=== PATIENT | female | born 1995 | race Caucasian/White ===

== ENCOUNTER 2017-10-24 16:04 | Emergency (ER) | payer BC ==
[~2017-10-24] VITALS: Ht 170.2 cm; Wt 72.6 kg
[~2017-10-24 16:04] MED LIST: NITR-68 PO; PHEN-640 PO; SULF1TAB35 PO
[2017-10-24] MEDS ORDERED: fentaNYL INJECTION 100 MCG/2 ML AMP IVP ONE (16:45)
[2017-10-24] MEDS ORDERED: NS IV 1000 ML 1,000 ML IV SCH (16:45)
[2017-10-24] MEDS ORDERED: ONDANSETRON 4 MG/2 ML (SDV) Z0FRAN IVP ONE (16:45)
--- NOTE | 2017-10-24 16:47 | ED Abdominal Pain ---
General Stated Complaint: ABD PAIN Source of Information: Patient Exam Limitations: No Limitations History of Present Illness Date Seen by Provider: Oct 24, 2017 Time Seen by Provider: 16:43 Initial Comments Patient is a 21-year-old female who presents to the emergency accompanied by female friend with reports of right upper quadrant abdominal pain for a year to year and a half. She reports that her primary care physician in [facility] has been evaluating her for gallbladder issues. She reports that last week she had an ultrasound of her gallbladder that was normal and she has outpatient orders for a HIDA scan but has not scheduled that yet. She reports that she has been prescribed Ultram for pain relief and is no longer working. She reports the pain has become worse the past 4 days. Reports nausea, denies fevers, vomiting, diarrhea, constipation, urinary tract symptoms. Timing/Duration: 4-5 Days (worsening pain) Severity/Quality: Moderate Location: RUQ Radiation: No Radiation Modifying Factors: Improves With Analgesics Associated Symptoms: No Fever/Chills; Nausea/Vomiting Allergies and Home Medications Allergies Coded Allergies: No Known Drug Allergies (Unverified , 12/12/14) Home Medications Hydrocodone Bit/Acetaminophen 1 Tab Tab, 1 EACH PO Q6H PRN for PAIN Prescribed by: MIKAYLA FAJARDO on 10/24/171742 Ondansetron 4 Mg Tab.rapdis, 4 MG SL Q4H PRN for NAUSEA/VOMITING-1ST LINE Prescribed by: MIKAYLA FAJARDO on 10/24/171745 Patient Home Medication List Home Medication List Reviewed: Yes Review of Systems Constitutional: see HPI; No chills, No fever Gastrointestinal: See HPI, Abdominal Pain, Nausea All Other Systems Reviewed Negative Unless Noted: Yes Past Uolrjko-Vkujvg-Wcpfzf Hx Past Med/Social Hx: Reviewed Nursing Past Med/Soc Hx Patient Social History Recent Foreign Travel: No Contact w/Someone Who Travel: No Seasonal Allergies Seasonal Allergies: No Past Medical History Adenoidectomy, Tonsillectomy Reproductive Disorders: No Sexually Transmitted Disease: No Family Medical History Reviewed Nursing Family Hx No Pertinent Family Hx Physical Exam Vital Signs Vital Signs - First Documented 10/24/17 16:34 Temp 97.8 Pulse 66 Resp 12 B/P (MAP) 137/83 (101) Pulse Ox 99 O2 Delivery Room Air Capillary Refill : Height/Weight/BMI Height: 5'7" Weight: 150lbs. oz. 68.702070km; 23.49 BMI Method:Stated General Appearance: WD/WN, no apparent distress Respiratory: chest non-tender, lungs clear, normal breath sounds, no respiratory distress, no accessory muscle use Cardiovascular: regular rate, rhythm, no edema, no gallop, no JVD, no murmur Gastrointestinal: normal bowel sounds, soft, no organomegaly, no pulsatile mass , tenderness (right upper quadrant tenderness to light palpation.) Neurologic/Psychiatric: alert, normal mood/affect, oriented x 3 Skin: normal color, warm/dry Progress/Results/Core Measures Results/Orders Lab Results Laboratory Tests Test 10/24/17 16:45 10/24/17 16:48 Range/Units White Blood Count 7.9 4.3-11.0 10^3/uL Red Blood Count 4.76 4.35-5.85 10^6/uL Hemoglobin 13.5 11.5-16.0 G/DL Hematocrit 41 35-52 % Mean Corpuscular Volume 87 80-99 FL Mean Corpuscular Hemoglobin 28 25-34 PG Mean Corpuscular Hemoglobin Concent 33 32-36 G/DL Red Cell Distribution Width 13.2 10.0-14.5 % Platelet Count 286 130-400 10^3/uL Mean Platelet Volume 9.7 7.4-10.4 FL Neutrophils (%) (Auto) 57 42-75 % Lymphocytes (%) (Auto) 31 12-44 % Monocytes (%) (Auto) 9 0-12 % Eosinophils (%) (Auto) 3 0-10 % Basophils (%) (Auto) 0 0-10 % Neutrophils # (Auto) 4.5 1.8-7.8 X 10^3 Lymphocytes # (Auto) 2.5 1.0-4.0 X 10^3 Monocytes # (Auto) 0.7 0.0-1.0 X 10^3 Eosinophils # (Auto) 0.2 0.0-0.3 10^3/uL Basophils # (Auto) 0.0 0.0-0.1 10^3/uL Sodium Level 137 135-145 MMOL/L Potassium Level 3.7 3.6-5.0 MMOL/L Chloride Level 105 98-107 MMOL/L Carbon Dioxide Level 23 21-32 MMOL/L Anion Gap 9 5-14 MMOL/L Blood Urea Nitrogen 10 7-18 MG/DL Creatinine 0.77 0.60-1.30 MG/DL Estimat Glomerular Filtration Rate > 60 BUN/Creatinine Ratio 13 Glucose Level 67 L 70-105 MG/DL Calcium Level 9.3 8.5-10.1 MG/DL Total Bilirubin 0.2 0.1-1.0 MG/DL Aspartate Amino Transf (AST/SGOT) 18 5-34 U/L Alanine Aminotransferase (ALT/SGPT) 20 0-55 U/L Alkaline Phosphatase 74 40-136 U/L Total Protein 7.5 6.4-8.2 GM/DL Albumin 4.2 3.2-4.5 GM/DL Amylase Level 55 25-125 U/L Lipase 18 8-78 U/L Serum Test, Qualitative NEGATIVE NEGATIVE Urine Color YELLOW Urine Clarity CLEAR Urine pH 5 5-9 Urine Specific [place] 1.025 H 1.016-1.022 Urine Protein NEGATIVE NEGATIVE Urine Glucose (UA) NEGATIVE NEGATIVE Urine Ketones NEGATIVE NEGATIVE Urine Nitrite NEGATIVE NEGATIVE Urine Bilirubin NEGATIVE NEGATIVE Urine Urobilinogen NORMAL NORMAL MG/DL Urine Leukocyte Esterase NEGATIVE NEGATIVE Urine RBC (Auto) 1+ H NEGATIVE Urine RBC NONE /HPF Urine WBC 2-5 /HPF Urine Squamous Epithelial Cells 5-10 /HPF Urine Crystals NONE /LPF Urine Bacteria TRACE /HPF Urine Casts NONE /LPF Urine Mucus NEGATIVE /LPF Urine Culture Indicated NO My Orders Orders - MIKAYLA FAJARDO Comprehensive Metabolic Panel (10/24/17 16:40) Lipase (10/24/17 16:40) Amylase (10/24/17 16:40) Ua Culture If Indicated (10/24/17 16:40) Hcg,Qualitative Serum (10/24/17 16:40) Saline Lock/Iv-Start (10/24/17 16:40) Cbc With Automated Diff (10/24/17 16:40) Ns Iv 1000 Ml (Sodium Chloride 0.9%) (10/24/17 16:45) Ondansetron Injection (Zofran Injectio (10/24/17 16:45) Fentanyl Injection (Sublimaze Injection (10/24/17 16:45) Ketorolac Injection (Toradol Injection) (10/24/17 17:30) Medications Given in ED Vital Signs/I&O 10/24/17 10/24/17 16:34 18:00 Temp 97.8 97.9 Pulse 66 67 Resp 12 12 B/P (MAP) 137/83 (101) 120/63 Pulse Ox 99 100 O2 Delivery Room Air Room Air Progress Progress Note : Progress Note I have seen and evaluated the patient. Given the patients normal labs and improving pain she agrees with plans of discharge and following up with the outpatient hida scan. Return precautions were given. Additional pain med script given along with zofran. Departure Impression Primary Impression: Abdominal pain Additional Impression: Nausea alone Disposition: 01 HOME, SELF-CARE Condition: Stable/Unchanged Departure-Patient Inst. Referrals: [facility] (PCP/Family) Primary Care Physician Patient Instructions: Acute Abdomen (Belly Pain), Adult (DC), Nausea and Vomiting, Adult Add. Discharge Instructions: Take medication as directed. [facility], scheduled your HIDA scan as previously directed. Return back to the emergency room for any worsening pain, nausea, vomiting, or any other concerns as needed. Scripts Ondansetron (Zofran Odt) 4 Mg Tab.rapdis 4 MG SL Q4H PRN for NAUSEA/VOMITING-1ST LINE, #14 TAB Prov: MIKAYLA FAJARDO 10/24/17 Hydrocodone Bit/Acetaminophen (Hydrocodone/Acetaminophen 5/325mg Tablet) 1 Tab Tab 1 EACH PO Q6H PRN for PAIN, #14 TAB Prov: MIKAYLA FAJARDO 10/24/17 MIKAYLA FAJARDO Oct 24, 2017 16:47
[2017-10-24 16:53] LABS: BASOPHILS % (AUTO) 0 % (0-10); EOSINOPHILS # (AUTO) 0.2 10^3/uL (0.0-0.3); EOSINOPHILS % (AUTO) 3 % (0-10); HEMATOCRIT 41 % (35-52); HEMOGLOBIN 13.5 G/DL (11.5-16.0); LYMPHOCYTES # (AUTO) 2.5 X 10^3 (1.0-4.0); LYMPHOCYTES % (AUTO) 31 % (12-44); MEAN CORPUSCULAR HEMOGLOBIN 28 PG (25-34); MEAN CORPUSCULAR HGB CONC 33 G/DL (32-36); MEAN CORPUSCULAR VOLUME 87 FL (80-99); MEAN PLATELET VOLUME 9.7 FL (7.4-10.4); MONOCYTES # (AUTO) 0.7 X 10^3 (0.0-1.0); MONOCYTES % (AUTO) 9 % (0-12); NEUTROPHILS # (AUTO) 4.5 X 10^3 (1.8-7.8); NEUTROPHILS % (AUTO) 57 % (42-75); PLATELET COUNT 286 10^3/uL (130-400); RED BLOOD COUNT 4.76 10^6/uL (4.35-5.85); RED CELL DISTRIBUTION WIDTH 13.2 % (10.0-14.5); WHITE BLOOD COUNT 7.9 10^3/uL (4.3-11.0)
[2017-10-24 17:21] LABS: BILIRUBIN,URINE NEGATIVE (NEGATIVE); CLARITY,URINE CLEAR; COLOR,URINE YELLOW; GLUCOSE, URINE (UA) NEGATIVE (NEGATIVE); KETONES,URINE NEGATIVE (NEGATIVE); LEUKOCYTE ESTERASE ,URINE NEGATIVE (NEGATIVE); NITRITE,URINE NEGATIVE (NEGATIVE); PH,URINE 5 (5-9); PROTEIN,URINE NEGATIVE (NEGATIVE); UROBILINOGEN,URINE NORMAL (NORMAL)
[2017-10-24 17:22] LABS: ALANINE AMINOTRANSFERASE 20 U/L (0-55); ALBUMIN 4.2 GM/DL (3.2-4.5); ALKALINE PHOSPHATASE 74 U/L (40-136); AMYLASE 55 U/L (25-125); BILIRUBIN,TOTAL 0.2 MG/DL (0.1-1.0); BUN/CREATININE RATIO 13; CALCIUM 9.3 MG/DL (8.5-10.1); CARBON DIOXIDE 23 MMOL/L (21-32); CHLORIDE 105 MMOL/L (98-107); CREATININE SERUM 0.77 MG/DL (0.60-1.30); GFR ESTIMATED > 60; GLUCOSE 67 MG/DL (70-105); LIPASE 18 U/L (8-78); POTASSIUM 3.7 MMOL/L (3.6-5.0); SODIUM 137 MMOL/L (135-145); TOTAL PROTEIN 7.5 GM/DL (6.4-8.2)
[2017-10-24] MEDS ORDERED: KETOROLAC 30 MG/ML VIAL IVP ONE (17:30)
[2017-10-24 17:32] LABS: BACTERIA,URINE TRACE /HPF
[2017-10-24] MEDS ORDERED: ACHD5005 PO (17:43)
[2017-10-24] MEDS ORDERED: ONDA4TAB8 SL (17:46)
[2017-10-24 18:00] VITALS: BP 120/63
--- OUTSIDE RECORDS SUMMARY | 2017-10-25 10:32 | XMS REPORT | Clinical Summary ---
Author Author [facility] Organization [facility] Address Unknown Phone Unavailable Care Team Providers Care Bailing Machine Operator Name Role Phone Jamie Brewster DO Unavailable Outpatient, Radiologist Unavailable Unavailable Ramírez Manning MD Unavailable Tyler Terrazas MD PCP Source Comments Some departments are not documenting in the electronic medical record. If you do not see the information that you expected, contact Release of Information in the Health Information Management department at [phone] for further assistance in locating additional records.[facility] Allergies No Known Allergies Current Medications Prescription Sig. Disp. Refills Start End Date Status Date norgestimate/ethinyl Take 1 Tab by mouth Active estradiol(+) daily. (ORTHO-CYCLEN (28); SPRINTEC (28); MONONESSA (28); PREVIFEM) tablet HYDROcodone/acetaminophen Take 1 Tab by mouth every 75 Tab 0 03/19/20 Active (NORCO) 7.5/325 mg tablet 6 hours as needed for 16 Pain Earliest Fill Date: 03/19/16 Active Problems Problem Noted Date Sprain of left ankle 07/23/2015 Social History Tobacco Use Types Packs/Day Years Used Date Never Smoker Smokeless Tobacco: Never Used Tobacco Cessation: Counseling Given: Yes Alcohol Use Drinks/Week oz/Week Comments No Sex Assigned at Date Recorded Not on file Last Filed Vital Signs Vital Sign Reading Time Taken Blood Pressure 132/64 07/10/2015 2:02 PM CDT Pulse 68 07/10/2015 2:02 PM CDT Temperature - - Respiratory Rate 16 07/10/2015 2:02 PM CDT Oxygen Saturation 99% 07/10/2015 2:02 PM CDT Inhaled Oxygen - - Concentration Weight 68 kg (150 lb) 09/29/2016 12:02 PM CDT Height 170.2 cm (5' 7") 09/29/2016 12:02 PM CDT Body Mass Index 23.49 09/29/2016 12:02 PM CDT Plan of Treatment Health Maintenance Due Date Last Done Comments PHYSICAL (COMPREHENSIVE) 12/18/2002 EXAM HPV VACCINES (1 of 3 - 12/18/2006 Female 3-dose series) PERTUSSIS VACCINE 12/18/2006 HIV SCREENING 12/18/2010 TETANUS VACCINE 12/18/2012 CERVICAL CANCER SCREENING 12/18/2016 INFLUENZA VACCINE 12/20/2017 Results Not on filefrom Last 3 Months
--- OUTSIDE RECORDS SUMMARY | 2017-10-25 10:32 | XMS REPORT | Continuity of Care Document ---
Author Author [facility] Organization [facility] Address Unknown Phone Unavailable Allergies Active Description Code Type Severity Reaction Onset Reported/Identified Relationship to Patient Clinical Status Yes No Known Drug Allergies [id number] Drug Allergy Unknown N/A 12/12/2014 Medications There is no data. 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 Results Test Result Range RPR, Rfx Qn RPR/Confirm TP - 02/02/17 12:00 RPR Non Reactive Non Reactive Encounters ACCT No. Visit Date/Time Discharge Status Pt. Type Provider Facility Loc./Unit Complaint [id number] 07/08/2015 10:17:00 07/08/2015 23:59:59 CLS Outpatient EMILEE LANCE MD [facility] RAD [id number] 06/27/2015 15:36:00 06/27/2015 18:09:00 DIS Emergency LEIGH AYALA [facility] ER [id number] 12/12/2014 10:25:00 12/12/2014 12:55:00 DIS Emergency JOSE ALDANA APRN [facility] ER [id number] 02/05/2017 09:08:00 Document Registration [id number] 02/05/2016 20:06:00 Document Registration [email or web address] 12/13/2014 03:54:19 ACT Document Registration
== END 2017-10-24 18:00 | disposition home or self-care (01) ==
LOC: EDUNIT# 16:04 → ER 16:05
DX: R10.11 Right upper quadrant pain (principal); R11.0 Nausea; Z90.89 Acquired absence of other organs
CPT/HCPCS: 36415; 80053; 81000; 82150; 83690; 84703; 85025; 96361; 96374; 96375